=== PATIENT | male | born 1970 | race Caucasian/White ===

== ENCOUNTER 2018-12-01 16:05 | Outpatient (CLI) | payer BC, SELFPAY ==
[2018-12-01 17:09] LABS: Cholesterol 203 mg/dL (50-200); HDL Cholesterol 68 mg/dL (40-60); LDL CHOLESTEROL 113 mg/dL (<100); Triglyceride 146 mg/dL (30-150)
[2018-12-03 11:08] LABS: PSA, Screening 0.3 ng/ml (0-3.5)
== END 2018-12-01 16:25 ==
PROVIDERS: PCP Emergency Medicine; Visit Provider Emergency Medicine
DX: Z13.220 Encounter for screening for lipoid disorders (principal); Z12.5 Encounter for screening for malignant neoplasm of prostate
CPT/HCPCS: 36415; 80061; 83721; 84153

== ENCOUNTER 2020-07-04 15:42 | Outpatient (REF) | payer BC, SELFPAY ==
--- NOTE | 2020-07-04 14:15 | SKI_PTH ---
PATIENT: Celestino Meléndez LOC: [facility] U#:[id number] AGE/SX: 49/M ROOM: RE07/04/[address]: Melody Santoro MD : [id number] BED: DIS: 07/04/2020 SPEC #: [id number] RECD: 07/04/20 17:07 STATUS: FARHEEN REAdryan #: [id number] PAULINE: 07/04/20 14:[address]: Melody Santoro DEPT: Surgical Specimen RECD BY: Haleigh Herring ENTERED: 07/04/20 17:07 SP TYPE: SKI OTHR DR: Farshad Lam DO Tissues: 1 - SKIN BIOPSY(SHAVE/PUNCH) Procedures: GROSS AND MICRO LEVEL 4 Comments: [id number] ([id number] [facility] [place]#)
== END 2020-07-04 16:02 ==
LOC: LBN 15:42
PROVIDERS: PCP Emergency Medicine; Visit Provider Surgery
DX: D23.5 Other benign neoplasm of skin of trunk (principal)
CPT/HCPCS: 88305

== ENCOUNTER 2020-12-25 03:25 | Outpatient (CLI) | payer BC, SELFPAY ==
[2020-12-25 11:34] LABS: Source Nasal/Nares
[2020-12-25 16:10] LABS: COVID-19 PCR Negative (Negative)
== END 2020-12-25 03:26 | disposition home or self-care (01) ==
LOC: LBO 03:25
PROVIDERS: PCP Emergency Medicine; Visit Provider Surgery
DX: Z20.822 Contact with and (suspected) exposure to COVID-19 (principal); Z01.818 Encounter for other preprocedural examination
CPT/HCPCS: 87635

== ENCOUNTER 2020-12-27 06:18 | Day surgery (SDC) | payer BC, SELFPAY ==
[2020-12-27] VITALS (8 sets, daily range): BP systolic 105–131; BP diastolic 56–88; PULSE 48–69; RESP 12–19; TEMP 36.2–36.6; TEMPC 36.4; O2SAT 94–99; BMI 26.6
--- NOTE | 2020-12-27 06:19 | W.PREOPHP ---
Date of service: 12/27/20 Assessment and Plan Assessment and plan (1) Bilateral inguinal hernia: Status: Acute Assessment and plan: Mr. Meléndez is a pleasant 50-year-old gentleman who was referred for a left inguinal hernia. On examination he has small bilateral inguinal hernias. They are not causing him a lot of pain. He does have some discomfort especially after drinking beer with high hops content. I do not know if this is because it causes increased gas in his small bowel. We discussed open repair of just the left side this is the one that is causing him some discomfort versus doing bilateral laparoscopic inguinal hernia repairs. I reviewed both open and laparoscopic surgery. We reviewed risks and benefits. We also discussed timing of the surgery. At this point he can have the surgery whenever it is convenient to him. This is not urgent or emergent. I did review with him signs that be worrisome for incarceration for which she should go to the emergency department. Mr. Meléndez is going to go home and look at his calendar and then call us back with a date in mind for his surgery. Qualifiers: Obstruction and gangrene presence: without obstruction or gangrene Recurrence: non-recurrent Qualified Code(s): K40.20 - Bilateral inguinal hernia, without obstruction or gangrene, not specified as recurrent History of Present Illness Narrative: Mr. Meléndez is a pleasant 50-year-old gentleman who is back to see me today because he has been having some discomfort in the left groin area since last fall. In the fall he felt some discomfort it then seemed to go away for a little while but then at the beginning of this year he started to notice it again. He himself has not noted a bulge. He denies any changes in bowel habits, nausea or vomiting. He does complain of increased discomfort if he drinks beer with a lot of pop in it. He does not seem to have any discomfort with lifting. He is otherwise healthy 50-year-old who is on no medications. There have been no changes in his health since he was last seen in the office Review of Systems Constitutional Constitutional: Denies fever(s) and Denies weakness Cardiovascular Cardiovascular: Denies chest pain, Denies chest pain at rest, Denies irregular heart rhythm, Denies dyspnea and Denies dyspnea on exertion Respiratory Respiratory: Denies cough, Denies dyspnea and Denies dyspnea on exertion Gastrointestinal Gastrointestinal: Reports as per HPI Genitourinary Genitourinary: Denies dysuria, Denies urinary incontinence and Denies urinary urgency Neurologic Neurologic: Denies weakness Endocrine Endocrine: Reports system reviewed and no additional complaints, except as documented Hematologic/Lymphatic Hematologic/Lymphatic: Denies easy bruising and Denies lymphadenopathy [facility] Medical History Hearing loss TM rupture Idiopathic scoliosis Rotoscoliosis; kyphoscoliosis Left inguinal hernia Nevus, non-neoplastic Pain in limb fallen right arch Plantar fasciitis PSVT (paroxysmal supraventricular tachycardia) (12/24/17) Right hand and foot pain Sebaceous cyst Stress fracture of lower leg with routine healing left tibia Temporomandibular joint disorder TMJ assymetry Surgical History History of open reduction and internal fixation (ORIF) procedure (12/12/14) 12/12/14 [facility]; DR. HARVEY RIGHT ANKLE ORIF 10/11/15 [facility]; DR. HARVEY REMOVAL OF HARDWARE (RIGHT) History of vasectomy (08/01/16) Family History Mother Diabetes Essential hypertension Hyperlipidemia Skin cancer Father Essential hypertension Hyperlipidemia Neoplasm PROSTATE Prostate cancer Maternal Grandfather Hyperlipidemia Paternal Grandfather Essential hypertension Malignant melanoma Maternal Grandmother Essential hypertension Paternal Grandmother Essential hypertension Non-Hodgkin lymphoma Hyperlipidemia Daughter No problems noted. Sister No problems noted. Social History Smoking/Tobacco Use Status: Former Tobacco Use Quit Date: 09/01/89 Smoking risk assessment performed?: Yes Alcohol Intake: current Alcohol Intake frequency: a few times a week Alcohol type: beer, wine and hard liquor Drug use: Occasionally Substance use type: marijuana Caregiver/Support person: No Household members: spouse Housing: house Communication Needs: None Do you need help understanding health information?: Never current occupation: BUSINESS INFORMATION CONSULTANT/CONSTRUCTION Pets and animals: Yes Pets and animals: cat(s) and dog(s) Sexually active: Yes Do you think of yourself as: straight/heterosexual Current gender identity: male What is your relationship status?: How often do you talk on the phone with friends or family?: three or more times per week How often do you get together with friends or relatives?: three or more times per week How often do you attend jewish or yarsani services?: decline to answer Do you belong to any clubs or organized social groups?: yes Panel score (0-1 are the most socially isolated patients): 3 What type of physical activity do you participate in: bicycling, weight lifting and other Details: Ski; HIIT Duration: > 90 minutes/day Frequency: daily Consuelo/Temple: No preference Special consuelo needs: No Seatbelt use: always Helmet use: Yes Helmet use: always Drive intox or ride w/intox front end driver: No Do you feel safe at home: Yes Do you feel safe in your relationship?: Yes Victim of physical abuse: No Victim of emotional abuse: No Victim of sexual abuse: No Would you like helpful sources: No Meds Allergies and Home Medications Allergies Allergy/AdvReac Type Severity Reaction Status Date / Time tetracycline [Tetracycline] Allergy Intermediate RASH Verified 12/27/20 05:47 Bee sting Allergy Intermediate Skin Rash Uncoded 12/27/20 05:47 Home Medications Medication Instructions Recorded Confirmed Type Unknown [No Known Home Meds] 11/26/18 12/25/20 History Exam Const General: comfortable and no acute distress Orientation: alert and oriented x3 HENMT Head: normocephalic and atraumatic Resp Effort & Inspection: normal respiratory effort Auscultation: clear to auscultation bilaterally Cardio Rate: regular rate Rhythm: regular rhythm Heart Sounds: no gallops, no murmurs and no rubs GI Inspection: normal to inspection Palpation: soft, no hepatosplenomegaly, hernia (bilateral inguinal hernias) and nontender
--- NOTE | 2020-12-27 06:23 | ROE_ITS ---
Date of service: 12/27/20 Time of Service: 09:06 Operative Note Operative Note DATE OF PROCEDURE: 12/27/20 PRE-OP DIAGNOSIS: Bilateral inguinal hernias POST-OP DIAGNOSIS: same PROCEDURE: laparoscopic bilateral inguinal hernia repair with mesh SURGEON: Melody Santoro TECHNICAL SALES SUPPORT SPECIALIST: Lydia Ham ANESTHESIA TYPE: Local By Surgeon (1% Lidocaine with epi) and General LMA/ETT Refer to Anesthesia Record ESTIMATED BLOOD LOSS: 10 PATHOLOGY: none sent COMPLICATIONS: None Patient was transported to: PACU Patient's condition: stable Implants: Bard 3DMax Left: LOT- [id number] REF- [id number] - 2023-02-26 Right- LOT- [id number] REF- [id number] - 2023-06-28 Indications: Mr. Meléndez is a pleasant 50-year-old gentleman who was referred for a left inguinal hernia. On examination he has small bilateral inguinal hernias. They are not causing him a lot of pain. He does have some discomfort especially after drinking beer with high hops content. I do not know if this is because it causes increased gas in his small bowel. We discussed open repair of just the left side this is the one that is causing him some discomfort versus doing bilateral laparoscopic inguinal hernia repairs. Findings: larger left inguinal hernia small right inguinal hernia Procedure Description: After informed consent was obtained the patient was taken to the OR and placed in a supine position. He was then placed under general anesthesia and an LMA was placed. A timeout was done, and the patient's name, date of , allergies to medications, DVT prophylaxis, antibiotic given, the post procedure were all reviewed. Fire risk was assessed. Next a Obregon catheter was placed in a standard sterile surgical fashion. At this point the abdomen was prepped and draped in a sterile surgical fashion. Quarter percent bupivacaine mixed 50-50 with Exparel was then injected just underneath the umbilicus. A 12 mm incision was made and dissection was taken down through the subcutaneous tissue to the fascia. The fascia was opened just to the right of midline. An S retractor was placed and the rectus muscle was then retracted. And then swept the muscle away from the peritoneum. The balloon dissector was then inserted all the way down to the pubic symphysis. The balloon was inflated until both inguinal areas were dissected. The balloon was removed and the preperitoneal space was insufflated. Once insufflated the camera was placed. 2 more ports were placed one just above the pubic symphysis which was 5 mm in size and another midway between the umbilicus and the pubic symphysis. This was also a 5 mm port. Next the right inguinal area was gently dissected making sure to pull the peritoneum down. The cord structures were identified. No fatty tissue was identified on the cord structures. There was a small hernia sac which was reduced away from the cord structures. Next I made sure that the peritoneum was down all the way up to the iliac crest. The pubic symphysis was also cleared for good visualization. Next the left inguinal area was gently dissected in the same way. First the peritoneum was brought down away from the cord structures and away from the pubic symphysis. The cord structures were identified and a sac was noted. The hernia sac again was gently dissected away from the cord structures and reduced. No cord lipoma was identified. Once there was a good space created both on the right and left for the mesh a 3D left mesh was placed into the peritoneum through the 12 mm port. It was secured at the lacunar ligament and just above the anterior superior iliac spine. There was good coverage medially. I made sure that the peritoneum was down below the mesh edge. Next the right 3D mesh was placed into the peritoneum. It was again secured at the lacunar ligament and just above the anterior superior iliac spine. There was good overlap at the pubic symphysis of both meshes. Again I made sure that the peritoneum and the hernia sac were below the edge of the mesh. At this point the 5 mm ports were removed. Lastly the camera was removed and the 12 mm port at the umbilicus. The fascia at the umbilicus was closed with a 0 Vicryl UR 6 figure of 8 suture. The skin of all 3 incisions were closed with 4-0 Vicryl. The skin was cleaned and dried and skin affix was applied. Sponge instrument needle counts were correct. The patient was woken up, the LMA was removed and he was taken to recovery in stable condition. There were no immediate complications.
--- NOTE | 2020-12-27 06:24 | PDOC.DSDIS_ITS ---
Discharge Plan Disposition Patient Disposition: HOME Condition: Good Discharge Details Reason For Visit: bilateral inguinal hernias Attending Provider: Melody Santoro Primary Care Provider: Farshad Lam Home Meds and New Rx's Prescriptions: New oxycodone 5 mg tablet 5 mg PO Q6H PRNQty: 14 RF: 0 Discharge Instructions Instructions: Laparoscopic Herniorrhaphy (DC) Additional Instructions: Activity at Home after surgery: 1. Make sure you walk outside at least 4 times per day 2. You should be able to climb a flight of stairs 3. No driving while in pain or taking pain medications 4. No strenuous activity or heavy lifting for 2 weeks (laparoscopic surgery) Diet, Nutrition, & wound healin. Avoid alcohol until after you are recovered from your surgery 2. Make sure to eat plenty of lean protein (meat, fish, eggs, cottage cheese, beans) 3. Eat a variety of fruits and vegetables. Eat plenty of high fiber foods to avoid constipation. 4. Drink plenty of liquids to stay hydrated and avoid constipation Pain Medications: 1. Tylenol 650mg every 6 hours as needed and Ibuprofen 600 mg every 6 hours as needed. You may alternate between the 2 medications every 3 hours 2. If a narcotic has been prescribed take as directed only for breakthrough pain For Constipation: 1. Take Milk of Magnesia or MiraLax as needed for constipation Other: 1. You may shower daily. Do not scrub the incisions 2. Do not soak the incisions for 1 week 3. You may alternate ice and heat as needed for pain and swelling Wound Care: 1. Keep the incisions clean and dry Please call our office if you develop: 1. Fevers >101.5 2. Nausea or Vomiting 3. Worsening pain 4. Redness and thick discharge from the wounds If after hours please call the Hospital at and ask to speak to the on-call surgeon Referrals: Lydia Ham PA [[employer]IST] - 01/11/21 11:00 am Activity:: No lifting >20 lb x 2 weeks Shower/Bathe:: 24 hours Diet:: As Tolerated Discharge Orders Discharge Orders: Discharge Order (Routine); Ordered 12/27/20 Ordered By: Melody Santoro DS: Diagnosis Discharge Diagnosis (1) Bilateral inguinal hernia: Status: Acute
[2020-12-27] MEDS: Lactated Ringers 1,000 ML 80 ML IV (06:42)
[2020-12-27] MEDS: Acetaminophen 500 MG TAB 1000 MG PO (06:42)
[2020-12-27] MEDS: Gabapentin 300 MG CAP PO (06:42)
[2020-12-27] MEDS: Celecoxib 200 MG CAP PO (06:42)
--- NOTE | 2020-12-27 06:54 | ANES.PREOP_ITS ---
General Info Date of Service Date Performed: 12/27/20 Height: 6 ft 1 in Weight: 91.4 kg Body Mass Index (BMI): 26.6 Surgical Procedure: Operation Date: 12/27/20 07:40 Proposed Procedures Side Surgeon p Hernia Inguinal Laparoscopic Bilateral Melody Santoro MD Meds Allergies and Home Medications Allergies Allergy/AdvReac Type Severity Reaction Status Date / Time tetracycline [Tetracycline] Allergy Intermediate RASH Verified 12/27/20 05:47 Bee sting Allergy Intermediate Skin Rash Uncoded 12/27/20 05:47 Home Medication Medication Instructions Recorded Unknown [No Known Home Meds] 11/26/18 Current Visit Medications: Current Medications Generic Name Dose Route Start Last Admin Trade Name Freq PRN Reason Stop Dose Admin Acetaminophen 1,000 mg 12/27/20 06:00 12/27/20 06:42 Acetaminophen 500 Mg Tab PO 01/25/21 23:59 1,000 mg PREOP NAYA Administration Celecoxib 200 mg 12/27/20 06:00 12/27/20 06:42 Celecoxib 200 Mg Cap PO 01/25/21 23:59 200 mg PREOP NAYA Administration Gabapentin 300 mg 12/27/20 06:00 12/27/20 06:42 Gabapentin 300 Mg Cap PO 01/25/21 23:59 300 mg PREOP NAYA Administration Ringer's Solution 1,000 mls @ 80 mls/hr 12/27/20 06:00 12/27/20 06:42 IV 01/25/21 23:59 80 mls/hr INFUSION NAYA Administration Cefazolin Sodium/Dextrose 2 gm in 50 mls @ 100 mls/hr 12/27/20 06:00 Ancef Duplex IVPB 01/25/21 23:59 PREOP NAYA Ondansetron HCl 4 mg/ Sodium 52 mls @ 200 mls/hr 12/27/20 06:27 Chloride IVPB Q6H PRN PRN IV Miscellaneous Supplies 1 each 12/27/20 06:00 Iv Access IV 01/25/21 23:59 DIRECTED NAYA Oxycodone HCl 5 mg 12/27/20 06:27 Oxycodone 5 Mg Tab PO Q3H PRN PRN Pain Sodium Chloride 0 ml 12/27/20 06:00 Normal Saline Flush 10 Ml Syr IV 01/25/21 23:59 PRN PRN Sodium Chloride 0 ml 12/27/20 06:00 Normal Saline 10 Ml Vial IJ 01/25/21 23:59 DIRECTED PRN Sterile Water 0 ml 12/27/20 06:00 Water,Injection,Sterile 10 Ml Vial IJ 01/25/21 23:59 DIRECTED PRN PFS Active Problems Active Problems: Problem Status Onset Code Thumb pain M79.646 Bilateral inguinal hernia K40.20 Left inguinal hernia K40.90 Sebaceous cyst L72.3 Family history of prostate cancer in father Z80.42 History of orthopedic surgery 10/11/15 Z98.890 Medical History Medical History Hearing loss TM rupture Idiopathic scoliosis Rotoscoliosis; kyphoscoliosis Left inguinal hernia Nevus, non-neoplastic Pain in limb fallen right arch Plantar fasciitis PSVT (paroxysmal supraventricular tachycardia) (12/24/17) Right hand and foot pain Sebaceous cyst Stress fracture of lower leg with routine healing left tibia Temporomandibular joint disorder TMJ assymetry Surgical History Surgical History History of open reduction and internal fixation (ORIF) procedure (12/12/14) 12/12/14 [facility]; DR. HARVEY RIGHT ANKLE ORIF 10/11/15 [facility]; DR. HARVEY REMOVAL OF HARDWARE (RIGHT) History of vasectomy (08/01/16) Tobacco Smoking/Tobacco Use Status: Former Tobacco Use Alcohol Alcohol Intake: current Alcohol intake frequency: a few times a week Alcohol type: beer, wine and hard liquor Substance Use Substance use: Occasionally Substance use type: marijuana Vital Signs and Lab Results Vital Signs Most Recent Vital Signs in EMR: Most Recent Vital Signs Temp Pulse Resp BP Pulse Ox 36.6 C 53 L 18 131/88 98 12/27/20 06:20 12/27/20 06:20 12/27/20 06:20 12/27/20 06:20 12/27/20 06:20 Lab Results Blood Type / Crossmatch: No Data to Display Complete Blood Count: White Blood Count 4.18 k/cumm (4.4-10.8) L 03/25/18 07:25 03/25/18 Red Blood Count 4.77 m/cumm (4.50-6.00) 03/25/18 07:25 03/25/18 Hemoglobin 15.4 g/dL (13.5-17.5) 03/25/18 07:25 03/25/18 Hematocrit 46.2 % (40.0-50.0) 03/25/18 07:25 03/25/18 Platelet Count 172 x1000/uL (130-400) 03/25/18 07:25 03/25/18 Complete Metabolic Panel: Creatinine 1.13 mg/dL (0.70-1.30) 03/25/18 07:25 03/25/18 Liver Function Panel: No Data to Display Coagulation Panel: No Data to Display Cardiac Panel: No Data to Display Arterial Blood Gas: No Data to Display Venous Blood Gas: No Data to Display Pancreas Panel: No Data to Display Thyroid Panel: No Data to Display Infectious Disease: Coronavirus (COVID-19)(PCR) Negative (Negative) 12/25/20 11:02 12/25/20 Coronavirus 2019 Source Nasal/nares 12/25/20 11:02 12/25/20 Blood Cultures: No Data to Display Toxicology Panel: No Data to Display Imaging and Studies Imaging and Studies Echocardiogram Summary:: 02/28/2014 LEFT VENTRICLE/LVEF: LVEF 60-65%. Normal size. RIGHT VENTRICLE: Normal size and function. AORTIC VALVE: Trileaflet, mild aortic insufficiency, no stenosis. MITRAL VALVE: Mild mitral insufficiency, no stenosis. TRICUSPID VALVE: Mild tricuspid insufficiency. RSV/PA/RIGHT ATRIAL PRESSURE: Pulmonary artery pressure estimated at 15-20mm. of mercury plus right atrial pressure. PULMONIC VALVE: Trace pulmonic insufficiency, no stenosis. ATRIA: Mild left atrial enlargement. The right atrium is normal. DIASTOLIC INDICES: GREAT VESSELS: The inferior vena cava is normal in size and collapses with inspiration. Right atrial pressure is estimated at less than 10 mm. of mercury. The aortic root measures 4.8 cm. in diameter at the sinus of Valsalva. The ascending aorta measures 3.8 cm. in diameter. PERICARDIUM: No effusion. RHYTHM: Sinus. Anesthesia Assessment and Plan Anesthesia History Personal History: No History of Anesthesia Complications Family History: No Family History of Anesthesia Complications Exercise Tolerance Exercise Tolerance: Metabolic Equivalents>4 Pertinent Negatives Pertinent Negatives: No Symptoms of GERD Cardiac & Pulmonary Exam Cardiac Exam: Normal S1/S2 Heart Sounds Pulmonary Exam: Clear Bilateral Breath Sounds Airway Exam Known Difficult Airway: No Mallampati Class: 2 Mouth Opening: Normal (> 3cm) Thyromental Distance: Greater than 3 cm Neck Range of Motion: Full ROM Neck Circumference: Normal Teeth Condition: Normal Dentition ASA Classification ASA Score: ASA 2 ASA Emergency: No NPO Status NPO Status: NPO Clears >2 hours, Solids >8 hours Anesthesia Plan Anesthesia Technique: General Anesthesia Airway Planned: Natural Airway Monitors Used: Standard Monitors
[2020-12-27] MEDS: ceFAZolin 2 GM/50 ML BAG IVPB (07:30)
--- NOTE | 2020-12-27 09:28 | W.ANESPOSTOP ---
Postoperative Evaluation Date, Time and Location Date Performed: 12/27/20 Time Performed: : Patient Location: PACU Vital Signs Most Recent Imported Vital Signs: Most Recent Vital Signs Temp Pulse Resp BP Pulse Ox 36.3 C L 61 18 110/56 L 95 12/27/20 09:20 12/27/20 09:20 12/27/20 09:20 12/27/20 09:20 12/27/20 09:20 Most Recent Manually Entered Vital Signs: Adult Blood Pressure: 109/62 Heart Rate: 69 Respirations: 18 Oxygen Saturation (%): 95 Temperature (C): 36.4 C Pain Score (0-10 Scale): 0 Pain Score Most Recent Pain Score: Most Recent Pain Score Pain Level 0 12/27/20 09:20 Assessment Mental Status: Awake (Alert & Oriented to Patient Baseline) Airway and Respiratory Function: Patent airway with normal (patient baseline) respiratory exam Cardiovascular Function: Hemodynamically Stable Hydration Status: Adequately Hydrated Nausea & Vomiting: No Nausea or Vomiting Pain: Pt. Denies Any Pain Peripheral Nerve Block: Patient did not receive a nerve block
[2020-12-27] MEDS: oxyCODONE 5 MG TAB PO (10:23)
== END 2020-12-27 11:15 | disposition home or self-care (01) ==
PROVIDERS: PCP Emergency Medicine; Visit Provider Surgery
PROC: (CPT 49650; principal; 2020-12-27 07:30)
DX: K40.20 Bilateral inguinal hernia, without obstruction or gangrene, not specified as recurrent (principal); I47.1 Supraventricular tachycardia
CPT/HCPCS: 49650; J0690; J1100; J1885; J2001; J2405; J2704; J3010

== ENCOUNTER 2021-06-26 21:27 | Outpatient (REF) | payer BC, SELFPAY ==
[2021-06-27 17:43] LABS: PSA, Screening 0.3 ng/mL (0.0-3.5)
== END 2021-06-26 21:28 | disposition home or self-care (01) ==
LOC: LBN 21:27
PROVIDERS: PCP Emergency Medicine; Visit Provider Emergency Medicine
DX: Z12.5 Encounter for screening for malignant neoplasm of prostate (principal)
CPT/HCPCS: 84153

== ENCOUNTER 2021-08-15 11:35 | Outpatient (CLI) | payer BC, SELFPAY ==
--- NOTE | 2021-08-15 11:00 | DI.RAD_ITS ---
Exam(s) XR THUMB LT EXAM: XR THUMB LT CLINICAL HISTORY: thumb anomaly. TECHNIQUE: 2D digital imaging was performed. COMPARISON: No exams were available for comparison FINDINGS: No evidence of acute fracture nor dislocation. No osseous lesions. No radiopaque foreign body. Mil d degenerative changes are noted in the interphalangeal joint and metacarpophalangeal joint. No eros ions. IMPRESSION: DATA REPOSITORY: RADIATION DOSE DELIVERED:
== END 2021-08-15 11:36 | disposition home or self-care (01) ==
LOC: DIORS 11:36
PROVIDERS: PCP Emergency Medicine; Referring Provider Emergency Medicine; Visit Provider Student in an Organized Health Care Education/Training Program
DX: M20.092 Other deformity of left finger(s) (principal); M18.12 Unilateral primary osteoarthritis of first carpometacarpal joint, left hand
CPT/HCPCS: 73140

== ENCOUNTER 2023-03-10 13:21 | Outpatient (CLI) | payer BC, SELFPAY | END 2023-03-10 13:22 | disposition home or self-care (01) | PROVIDERS: PCP Family Medicine; Visit Provider Family Medicine | DX: I47.1 Supraventricular tachycardia (principal) | CPT/HCPCS: 93270 ==

== ENCOUNTER 2023-03-21 08:45 | Outpatient (CLI) | payer BC, SELFPAY ==
--- NOTE | 2023-03-21 08:45 | RT.EKG_ITS ---
APPROVED REPORT Exam: Resting ECG Reason for Exam: new patient work up baseline needed Patient Location: O HR:45 bpm ECG Measurements Heart Rate 45 AXIS MD 182 P 70 QRSd 153 QRS 95 QT 517 T 51 QTc 448 Conclusion Sinus bradycardia...rate< 50 RBBB
== END 2023-03-21 08:46 | disposition home or self-care (01) ==
LOC: DI.CARD 08:47
PROVIDERS: PCP Family Medicine; Visit Provider Internal Medicine Cardiovascular Disease
DX: I47.20 Ventricular tachycardia, unspecified (principal); Z13.6 Encounter for screening for cardiovascular disorders
CPT/HCPCS: 93010

== ENCOUNTER 2023-04-03 00:50 | Outpatient (CLI) | payer BC, SELFPAY ==
--- NOTE | 2023-04-03 07:30 | DI.NM_ITS ---
APPROVED REPORT Exam: Exercise Treadmill Patient Location: Out-Patient Room/Bed: Stress Nurse: Nanci Escobar RN Ordering Provider:LUL CARPIO, Contact Number: [phone] BMI: 25.06 Baseline Rhythm: Sinus Bradycardia, RBBB Indications: Paroxysmal SVT, RBBB Medical History Medical History: RBBB, BPH, high blood pressure without HTN diagnosis Cardiac Medications: Epinephrine per injector Allergies: Tetracycline, bee stings, skin glue Cardiac Risk Factors: Family history Previous Cardiac Procedures: None Pretest Chest Pain Characteristics: None Exercise History: Physically active Physical Disabilities: None Lung Sounds: Clear to auscultation Heart Sounds: Regular Stress Test Details Test: Exercise stress testing was performed using a Adilson protocol. Nuclear Acquisition: Rest Tc-99m/Stress Tc-99m 1 day Rest Isotope: Tc-99m Sestamibi. Dose: 10.5 Date: 04/03/2023 Injection Time: 1105 Stress Isotope: Tc-99m Sestamibi. Dose: 28.0 Date: 04/03/2023 Injection Time: 1245 HR Resting HR Supine: 45 bpm Max Heart Rate (APMHR): 166.625543 bpm Resting HR Standin bpm Target HR (85% APMHR): 141.774154 bpm Max HR Achieved: 207 bpm % of APMHR: 124.70 Recovery HR: 111 bpm HR response to stress: Accelerated HR response to stress BP Resting BP Supine: 138/92 mmHg Resting BP Standin/85 mmHg Max BP: 202/96 mmHg Recovery BP: 150/92 mmHg BP response to stress: Normal blood pressure response to stress. ECG Resting ECG: Sinus Bradycardia,RBBB Ectopy: Occasional PVC's Stress ECG: Sinus Tachycardia, PSVT ST Change: No significant ST segment changes noted Arrhythmia: SVT, couplets, frequent PVC's, 3 beat runs of vtach Recovery ECG: Sinus Tachycardia, RBBB Recovery ST Change: No significant ST segment changes noted Recovery Arrhythmia: Frequent PVC's, couplets, 3 beat runs vtach Clinical Reason for Termination: SVT sustained: rates 160-200's Stress Symptoms: Mild palpitations Exercise duration: 06 min36 sec Highest Stage Reached: Stage 3: 3.4 mph at 14% grade. Exercise capacity: 7.92 METs Angina Score: None Freedman Treadmill Score: 3.0 Rate Pressure Product: 53366 Stress ECG Conclusion 1. The resting electrocardiogram showed sinus bradycardia at 45, right bundle branch block 2. Patient exercised on the Adilson protocol. He completed a workload of 7.92 METS 3. Patient developed supraventricular tachycardia in stage II heart rates as high as 200 4. Premature ventricular contractions were also noted. Sporadic atrial premature beats were present which appeared to initiate the SVT 5. The electrocardiographic portion of the test did not meet criteria for myocardial ischemia 6. At maximal heart rates, EKG showed regular wide-complex tachycardia 7. See MPI report Freedman Treadmill Score is 3.0 which is Moderate risk. Critical Notification Physician Notified Date: 04/03/2023 Time: 1309 Physician Name: Response Time: 1:12 Stress Test Summary STAGE Time (mins) Speed (mph) Grade (%) HR BP SpO2 SYMPTOMS METS Supine 45 138/92 99 Standing 53 142/85 99 1 3 1.7 10 83 150/92 99 4.5 2 6 2.5 12 91 170/82 99 7 1 min recovery 182 162/82 3 min recovery 119 202/92 6 min recovery 109 152/90 9 min recovery 111 Patient presented in sinus bradycardia and was asymptomatic. Started exercise and noted to go into SV T in stage 3. HR between 160-207 at this time. Test stopped and patient escorted to stretcher. Ezio nued to be asympstomatic but did note mild palpitations. Vagal manuvers done by patient with staff in struction and rate decreased to 100's-120's. Dr. Carpio consulted and evaluated patient and rhythm. Pat ient ok to proceed with imaging with tech per Dr. Carpio as long as he did not demonstrate any new symp toms. Tech informed to notify nurses if patient developed new symptoms. Ok to D/C patient per Dr. Lor hardwick after imaging if patient did not develop new or worsening symptoms. MPI Conclusion Myocardial perfusion is normal. There is no ischemia or evidence of prior infarction left ventricle appears dilated. Calculated ejection fraction is 41% but visually appears higher. T here are no segmental wall motion abnormalities Radiologist Interpretation Radiologist agrees with [employer] Applicator's Interpretation. Radiologist Interpretation by: Caitlyn Young MD Interpretation Date/Time: 04/03/2023 15:36:00
== END 2023-04-03 01:10 ==
PROVIDERS: PCP Family Medicine; Visit Provider Internal Medicine Cardiovascular Disease
DX: I45.10 Unspecified right bundle-branch block (principal); I47.1 Supraventricular tachycardia
CPT/HCPCS: 78452; 93017

== ENCOUNTER 2023-04-14 08:15 | Outpatient (CLI) | payer BC, SELFPAY ==
--- NOTE | 2023-04-14 12:24 | W.CARDEVENT ---
Date of service: 04/14/23 Time of Service: 12:24 Cardiac Event Recorder Referring Provider:: Mary Stanley Indications:: Supraventricular tachycardia Cardiac Event Note: This is a cardiac event monitor ordered for supraventricular tachycardia. Patient was monitored for 28 days and 14 hours Predominant rhythm was sinus with an average heart rate of 63. Minimum was 37, maximum sinus rate was 143 There were multiple runs of supraventricular tachycardia, generally 152 to 172 bpm Fastest SVT was 200 bpm . There was no atrial fibrillation, no high-grade AV block, no pauses greater than 3 seconds
== END 2023-04-14 08:16 | disposition home or self-care (01) ==
LOC: CARDOPNVT 08:15
PROVIDERS: PCP Family Medicine; Visit Provider Internal Medicine Cardiovascular Disease
DX: I47.1 Supraventricular tachycardia (principal)

== ENCOUNTER → 2023-05-08 02:58 | Outpatient (CLI) | payer BC, SELFPAY ==
--- NOTE | 2023-05-08 13:45 | DI.US_ITS ---
APPROVED REPORT EXAM: Comprehensive 2D, Doppler, and color-flow Echocardiogram Patient Location: In-Patient Auth Specialist: Angelo Reveles RDCS (AE) Indications: paroxysmal SVT, RBBB Other Information Study Quality: Good Conclusion Normal left ventricular wall thickness and chamber size. Ejection fraction is 55 to 60%. Wall motio n is normal Normal right ventricular size and systolic function Left atrium is mildly dilated. Right atrial size is normal There are no structural valvular abnormalities Trace aortic mitral and tricuspid regurgitation Mildly dilated ascending aorta measuring 3.66 cm Right ventricular systolic pressure could not be estimated Wall motion Left Ventricle The left ventricle is normal size. The left ventricular systolic function is normal. The left ventric ular ejection fraction is within the normal range. There is normal left ventricular wall thickness. T here is normal LV segmental wall motion. There is no ventricular septal defect visualized. LVEF is 57 %. Right Ventricle The right ventricle is normal size. The right ventricular systolic function is normal. Unable to asse ss PA pressure. Atria Left atrium is mildly dilated. The right atrium size is normal. The interatrial septum is intact with no evidence for an atrial septal defect. Aortic Valve The aortic valve is normal in structure. There is no aortic valvular stenosis. Trace aortic regurgita tion. Mitral Valve The mitral valve is normal in structure. No evidence of mitral valve stenosis. Trace mitral regurgita tion. Tricuspid Valve The tricuspid valve is normal in structure. There is no tricuspid valve stenosis. Trace tricuspid reg urgitation. Pulmonic Valve The pulmonary valve is normal in structure. There is no pulmonic valvular stenosis. There is no pulmo giovanny valvular regurgitation. Great Vessels Aortic root is moderately dilated. The ascending aorta is mildly dilated. Aortic arch is not well vis ualized. IVC is normal in size and collapses >50% with inspiration. Pericardium There is no pericardial effusion. 2D Dimensions IVSD d PLAX 0.72 cm M: 0.6-1.2 Ao Root d 4.45 cm M: 3.1 - 3.7 LVPW d PLAX 0.73 cm M: 0.6 - 1.2 Ao Asc Diam d 3.66 cm M: 2.6 - 3.4 LVID d PLAX 5.50 cm M: 4.2 - 5.8 LVDs 3.86 cm M: 2.5 - 4.0 LV EF Teichholz 56.3 % FS 29.77 % LV EDV (Teich) 147.5 mL LV ESV (Teich) 64.4 mL Stroke Vol Index (Teich) 38.99 M-Mode TAPSE 2.45 cm (M/F) >1.7 Auto EF LV EDV A4C 205.9 mL LV EDV A2C 212.8 mL LV EDV BP 213.7 mL LV ESV A4C 89.4 mL LV ESV A2C 92.3 mL LV ESV BP 91.5 mL LVEF(%) A4C 56.6 % LVEF(%) A2C 56.6 % LVEF(%) BP 57.2 % LV SV A4C 116.5 ml LV SV A2C 120.5 ml LV SV BP 122.2 ml LV CO A4C 6.3 L/min LV CO A2C 6.5 L/min LV CO BP 6.4 L/min HR A4C 54.30 BPM HR A2C 53.88 BPM LV EDV Index (BP) LA Volume LA Length A4C 5.6 cm LA Length A2C LA Area A4C s 16.86 cm2 LA Area A2C s LA Vol A4C A-L 42.89 mL LA Vol A2C A-L LA Vol Biplane A-L LA Vol A4C MOD 40.6 mL LA Vol A2C MOD LA Vol BP MOD RA Volume RA Area A4C 12.8 cm2 RA ESV A4C (A-L) 28.9mL RA Vol/BSA A4C A-L RA Length A4C 4.8 cm RA ESV A4C (MOD) 28.1mL LV Diastology MV E' medial 0.103 (>0.07 m/s) MV E Vmax 0.68 (0.4-1.3 m/s) MV E/E' MED 6.61 (<14) MV A Vmax 0.50 (0.4-1.3 m/s) MV E' lateral 0.105 (>0.1 m/s) E/A Ratio 1.4 MV E/E' LAT 6.46 (<14) MV E' Average 0.104 m/s MV E/E'(average) 6.54 Aortic Valve AoV Vmax 1.43 m/s LVOT Vmax 1.19 m/s AoV Peak Grad 8.2 mmHg LVOT Peak Grad 5.7 mmHg AoV Area (Vmax) 3.19 cm2 LVOT VTI 0.272 m AoV VTI 0.306 m LVOT Mean Grad 2.9 mmHg AoV Mean Julio. 0.85 m/s LVOT SV 104.76 mL AoV Mean Grad 3.5 mmHg LVOT Diam s 2.20 cm AoV Area (VTI) 3.43 cm2 Velocity Ratio 0.83 Mitral Valve MV DT 254 (160-240 msec) Pulmonary Valve PV Vmax 1.01 (0.5-1.5 m/s) RVOT Vmax 0.81 m/s PV Peak Grad 4.1 mmHg RVOT Peak Gr. 2.6 mmHg PV Mean Julio 0.79 m/s RVOT VTI 0.171 m PV Mean Grad 2.7 mmHg RVOT Mean Gr. 1.5 mmHg Tricuspid Valve RA Pressure 3.00 mmHg TR Vmax 1.18 m/s TR Peak Grad 5.5 mmHg RVSP (TR) 8.6 mmHg
== END ==
PROVIDERS: PCP Family Medicine; Visit Provider Internal Medicine Cardiovascular Disease
DX: I45.10 Unspecified right bundle-branch block (principal); I47.1 Supraventricular tachycardia
CPT/HCPCS: 93306

== ENCOUNTER 2023-07-30 03:14 | Outpatient (CLI) | payer BC, SELFPAY ==
[2023-07-30 12:18] LABS: ALT 39 U/L (16-63); AST 38 U/L (15-37); Albumin 3.7 g/dL (3.4-5.0); Alkaline Phosphatase 59 U/L (46-116); Anion Gap 5.5 mmol/L (3-11); BUN 18 mg/dL (7-18); Bilirubin, Total 0.5 mg/dL (0.2-1.0); CO2 31.5 mmol/L (21.0-32.0); CREATININE 1.1 mg/dL (0.70-1.30); Calcium 9.1 mg/dL (8.5-10.1); Calculated LDL 106 mg/dL (<100); Chloride 102 mmol/L (98-107); Cholesterol 211 mg/dL (<200); Estimated GFR 79.77 (mL/min/1.73m2); Glucose 107 mg/dL (74-106); HDL Cholesterol 81 mg/dL (40-60); Magnesium 2.4 mg/dL (1.8-2.4); Potassium 3.9 mmol/L (3.5-5.1); Sodium 139 mmol/L (136-145); Total Protein 7.4 g/dL (6.4-8.2); Triglyceride 121 mg/dL (<150)
[2023-07-30 18:42] LABS: PSA, Screening 0.3 ng/mL (<=3.5)
[2023-08-01 13:32] LABS: Apolipoprotein B, S 86 mg/dL
== END 2023-07-30 03:15 | disposition home or self-care (01) ==
LOC: LBO 03:14
PROVIDERS: PCP Family Medicine; Visit Provider Family Medicine
DX: I45.10 Unspecified right bundle-branch block (principal); I47.20 Ventricular tachycardia, unspecified; Z00.00 Encounter for general adult medical examination without abnormal findings; Z13.6 Encounter for screening for cardiovascular disorders; Z12.5 Encounter for screening for malignant neoplasm of prostate
CPT/HCPCS: 36415; 80053; 80061; 82172; 84153; 83735

== ENCOUNTER 2025-04-03 11:17 | Emergency (ER) | payer BC, SELFPAY ==
[2025-04-03] VITALS (20 sets, daily range): BP systolic 136–165; BP diastolic 69–94; PULSE 53–75; RESP 13–22; TEMP 37.1; O2SAT 93–100
--- NOTE | 2025-04-03 11:00 | RT.EKG_ITS ---
APPROVED REPORT Exam: Resting ECG Reason for Exam: [facility] Patient Location: E HR:71 bpm ECG Measurements Heart Rate 71 AXIS PA 169 P 62 QRSd 155 QRS 71 QT 461 T 48 QTc 499 Conclusion Sinus rhythm...normal P axis, V-rate 60- 99 Right bundle branch block...QRSd>120, terminal axis(90,270) Sinus Rhythm with RBBB. When compared to prior 03/21/23 HR has increased. WD
--- NOTE | 2025-04-03 11:15 | DI.CT_ITS ---
Exam(s) CT BRAIN NECK CTA EXAM: CT BRAIN NECK CTA CLINICAL HISTORY: new onset seizure, left facial droop, dysphasia. TECHNIQUE: Imaging Protocol: Axial CT angiography was performed with multi- slice acquisition and multi-planar and/or 3D reconstructions. CONTRAST MATERIAL: Intravenous: Omnipaque 350 Contrast volume:75 mL. COMPARISON: No exams were available for comparison FINDINGS: CTA Neck W: Aortic arch anatomy: The aortic arch anatomy is conventional and there is no significant stenosis at the origin of the great vessels off of the aortic arch. No intimal flap evident. Anterior circulation: Both common carotid arteries ascend with normal luminal diameters. At the level the carotid bulbs and proximal internal carotid arteries there is minimal plaque without hemodynamically significant stenosis evident either side. Also no evidence of dissection. Both internal carotid arteries are nicely patent in the upper neck-skull base- carotid canals. Posterior circulation: Both vertebral arteries originate in conventional fashion off of the subclavian arteries and there is no obvious stenosis at the origin of the vertebral arteries. Both vertebral arteries exhibit normal luminal diameters within the foramen transversarium. Both vertebral arteries exhibit similar size. Both vertebral arteries contribute to the formation of the basilar artery at the skull base. CTA Brain W: Anterior circulation: Both internal carotid arteries are patent in the skull base-carotid canals as well as within the cavernous sinuses. The supraclinoid aspects of the ICAs are patent. Both A1 segments are patent as are the anterior cerebral arteries and there is no evidence of aneurysm at the level of the anterior communicating artery. Both middle cerebral arteries are patent with no evidence of significant stenosis nor intraluminal thrombus. There also no aneurysms of these vessels. Posterior circulation: Basilar artery ascends without significant stenosis. Distally gives off superior cerebellar arteries. Above this level terminates as patent posterior cerebral arteries. There is a posterior communicating artery on the left side of the uxehzf-mh-Mohvnu noted, this setting circulation to the left posterior cerebral artery. There is no posterior communicating artery evident on the right side of the [id number]-[id number]. There is no evidence of aneurysm at the tip of the basilar artery nor elsewhere in the ozhgfu-[id number]. CT BRAIN: There is an abnormal enhancing mass in the floor of the left middle cranial fossa which measures 1.7 cm AP by 1.5 cm wide by 1.5 cm craniocaudal. This appears to be meningeal based and is probably meningioma although the amount of edema in the anterior left temporal lobe within the left middle cranial fossa is more than typically seen with a meningioma. There are no ring enhancing lesions in the brain. IMPRESSION: 1. Patent carotid arteries in the neck. No hemodynamically significant stenosis. No dissection 2. Patent vertebral arteries. No significant stenosis, thrombosis, nor dissection 3. Patent intracranial arteries. 4. There is an enhancing lesion in the inferior aspect of the left middle cranial fossa measuring 17 x 15 x 15 mm and appearing dural-based and probably a meningioma. However, there is significant surrounding vasogenic edema in the anterior left temporal lobe at this level noted, more so than typically seen with a meningioma. Recommend follow-up contrast infused MRI. Preliminary virtual Radiology report was reviewed. RADIATION DOSE DELIVERED: 2,219.79mGy.cm Total DLP DATA REPOSITORY: All CT scans at this facility are submitted to the National Radiology Data Registry (NRDR) Dose Index Registry (DIR) with the [place] [employer] (ACR). RADIATION OPTIMIZATION: All CT scans at this facility use at least one of these dose optimization techniques: automated exposure control; mA and/or kV adjustment per patient size (includes targeted exams where dose is matched to clinical indication); or iterative reconstruction.
--- NOTE | 2025-04-03 11:30 | DI.RAD_ITS ---
Exam(s) XR CHEST 1V IN DI DEPT EXAM: XR CHEST 1V IN DI DEPT CLINICAL HISTORY: ams. TECHNIQUE: 2D digital imaging was performed. COMPARISON: No exams were available for comparison FINDINGS: Single AP portable view. Heart size is upper normal. The mediastinum is not widened. Lungs are clear. No infiltrates nor obvious pleural effusions. Moderate scoliosis noted IMPRESSION: No acute pulmonary findings on this single AP portable view of the chest. DATA REPOSITORY: RADIATION DOSE DELIVERED:
[2025-04-03] MEDS: Normal Saline - Diluent 50 ML VIAL IJ (11:34)
[2025-04-03 11:36] LABS: Abs Immature Grans 0.03 10^3/uL (0.0-0.06); HCT 41.6 % (40.0-50.0); HGB 14.3 g/dL (13.5-17.5); Immature Grans % 0.6 %; MCH 32.6 pg (27.0-33.0); MCHC 34.4 % (32.0-36.0); MCV 95 fL (80-95); MPV 10.3 fL (8.0-11.0); Platelet Count 147 10^3/uL (130-400); RBC 4.38 10^6/uL (4.36-5.78); RDW 12.4 % (11.8-14.1); RDW-SD 43.8 fL; WBC 5.17 10^3/uL (4.4-10.8)
[2025-04-03] MEDS: Omnipaque 350 MG/ML 100 ML BTL IJ (11:42)
[2025-04-03 11:51] LABS: ALT 28 U/L (16-63); AST 19 U/L (15-37); Albumin 3.8 g/dL (3.4-5.0); Alkaline Phosphatase 55 U/L (46-116); Anion Gap 6.0 mmol/L (3-11); BUN 25 mg/dL (7-18); Bilirubin, Total 0.6 mg/dL (0.2-1.0); CO2 30.0 mmol/L (21.0-32.0); Calcium 9.0 mg/dL (8.5-10.1); Chloride 100 mmol/L (98-107); Estimated GFR 88.33 (mL/min/1.73m2); Glucose 132 mg/dL (74-106); Magnesium 2.1 mg/dL (1.8-2.4); Potassium 4.3 mmol/L (3.5-5.1); Sodium 136 mmol/L (136-145); Total Protein 7.2 g/dL (6.4-8.2)
[2025-04-03] MEDS: Normal Saline 1,000 ML 1000 ML IV (11:52)
[2025-04-03 11:59] LABS: TSH (W/Ref FT4) 2.81 uIU/mL (0.36-3.74)
--- NOTE | 2025-04-03 12:18 | DI.VRAD_ITS ---
PROCEDURE INFORMATION: Exam: CTA Head Without And With Contrast, Arteriography Exam date and time: 04/03/2025 11:33 AM Age: 54 years old Clinical indication: Stroke-like symptoms; Other: Dysphasia, seizure; Left facial droop TECHNIQUE: Imaging protocol: Computed tomographic angiography of the head without and with contrast. Exam focused on the arteries. 3D rendering (Not supervised by radiologist): MIP and/or 3D reconstructed images were created by the technologist. Contrast material: OMNIAPQUE 350; Contrast volume: 75 ml; Contrast route: INTRAVENOUS (IV); Other technique: STROKE PROTOCOL was implemented. COMPARISON: No relevant prior studies available. FINDINGS: ANTERIOR CIRCULATION: Right internal carotid artery: Intracranial segment is patent with no significant stenosis or occlusion. No aneurysm. Right middle cerebral artery: No occlusion or significant stenosis. No aneurysm. Right anterior cerebral artery: No occlusion or significant stenosis. No aneurysm. Left internal carotid artery: Intracranial segment is patent with no significant stenosis. No aneurysm. Left middle cerebral artery: No occlusion or significant stenosis. No aneurysm. Left anterior cerebral artery: No occlusion or significant stenosis. No aneurysm. POSTERIOR CIRCULATION: Right vertebral artery: No occlusion or significant stenosis. No aneurysm. Left vertebral artery: No occlusion or significant stenosis. No aneurysm. Basilar artery: No occlusion or significant stenosis. No aneurysm. Right posterior cerebral artery: No occlusion or significant stenosis. No aneurysm. Left posterior cerebral artery: No occlusion or significant stenosis. No aneurysm. HEAD: Brain: There is a left temporal pole predominantly subcortical hypodensity suggestive of vasogenic edema. There is a hyperenhancing dural-based mass in the floor of the left middle cranial fossa measuring 1.6 x 1.8 x 1.5 cm causing mild mass effect on the inferior aspect of the left temporal pole. No midline shift. Cerebral ventricles: Normal. No ventriculomegaly. Pituitary gland and sella: There is a normal empty pituitary sella. Bones: Unremarkable. No acute fracture. Paranasal sinuses: Mucous retention cyst in the left maxillary sinus. Mastoid air cells: Visualized mastoids are normal. No mastoid effusion. Soft tissues: Unremarkable. IMPRESSION: 1. No large territorial infarct or intracranial bleed. 2. Left middle cranial fossa hyperenhancing lesion measuring 1.8 cm, likely dural-based and represent suspicious for a meningioma with surrounding vasogenic edema in the left temporal pole. Further evaluation by MRI with gadolinium is recommended. ASSESSMENT: ASPECTS ([place] Stroke Program Early CT Score) is 10. PROCEDURE INFORMATION: Exam: CTA Neck Without And With Contrast Exam date and time: 04/03/2025 11:33 AM Age: 54 years old Clinical indication: Stroke-like symptoms; Other: Dysphasia, seizure; Left facial droop TECHNIQUE: Imaging protocol: Computed tomographic angiography of the neck without and with contrast. Exam focused on the cervical segments of the vasculature. 3D rendering (Not supervised by radiologist): MIP and/or 3D reconstructed images were created by the technologist. Contrast material: OMNIAPQUE 350; Contrast volume: 75 ml; Contrast route: INTRAVENOUS (IV); COMPARISON: No relevant prior studies available. FINDINGS: Right common carotid artery: Calcified atheroma of the right common carotid artery but no significant stenosis. Right internal carotid artery: No stenosis of the extracranial segment. No dissection or occlusion. Right external carotid artery: No occlusion or stenosis of the origin. Left common carotid artery: No stenosis. No dissection or occlusion. Left internal carotid artery: No stenosis of the extracranial segment. No dissection or occlusion. Left external carotid artery: No occlusion or stenosis of the origin. Right vertebral artery: No stenosis. No dissection or occlusion. Left vertebral artery: No stenosis. No dissection or occlusion. Paranasal sinuses: Mild mucosal disease of the left maxillary sinus. Thyroid: Hypodense left thyroid nodule measuring 7 mm. Soft tissues: Normal. No significant soft tissue swelling. Bones/joints: The cervical spine demonstrates mild degenerative changes at multiple levels. IMPRESSION: No significant arterial stenosis. REFERENCES: NASCET CRITERIA. The degree of stenosis in the cervical segment of the internal carotid artery is based on NASCET criteria. Normal is no stenosis. Mild is less than 50% stenosis. Moderate is 50-69% stenosis. Severe is 70% to 99% stenosis. Total occlusion is no detectable patent lumen. Dictated and Authenticated by: Humberto Gibson MD. Orderin Maria R Ricardo MD
--- NOTE | 2025-04-03 12:19 | DI.VRAD_ITS ---
PROCEDURE INFORMATION: Exam: XR Chest Exam date and time: 04/03/2025 11:50 AM Age: 54 years old Clinical indication: Other: New onset seizure, left facial droop, dysphasia/ams TECHNIQUE: Imaging protocol: Radiologic exam of the chest. Views: 1 view. COMPARISON: CT BRAIN NECK CTA 04/03/2025 11:33 AM FINDINGS: Lungs: Unremarkable. No consolidation. Pleural spaces: Unremarkable. No pleural effusion. No pneumothorax. Heart/Mediastinum: Unremarkable. No cardiomegaly. Bones/joints: Mild curvature of the thoracic spine convex to the left. IMPRESSION: No acute cardiopulmonary process. Dictated and Authenticated by: Humberto Gibson MD. Orderin Maria R Ricardo MD
[2025-04-03 12:48] LABS: Glucose Negative (Negative)
[2025-04-03] MEDS: levETIRAcetam 1,000 MG in Normal Saline 100 ML 400 MG IVPB (12:55)
[2025-04-03] MEDS: Dexamethasone 4 MG/ML VIAL IVP (12:55)
[2025-04-03 12:56] LABS: Troponin I 5 ng/L (<or=76)
[2025-04-03 12:59] LABS: Cannabinoids THC Negative (Negative); METHADONE URINE SCREEN Negative (Negative)
[2025-04-03] MEDS: levETIRAcetam 500 MG in Normal Saline 100 ML 400 MG IVPB (13:43)
--- NOTE | 2025-04-03 13:50 | W.ED.GENAD ---
Discharge Plan Disposition Patient Disposition: Transfer-Acute Inpatient Care Specific Acute Inpt Facility: [facility] Condition: Critical Discharge Details Clinical Impression: Brain mass, New onset seizure Primary Care Provider: Mary Stanley ED Provider: Haleigh Heck Home Meds and New Rx's Prescriptions: No Action epinephrine 0.3 mg/0.3 mL auto-injector 0.3 mg IM ONCE Qty: 2 0RF Rx Instructions: as a single dose; may repeat once HPI General Date/Time Provider Initiated Documentation: 04/03/25 11:26. HPI Narrative: 54-year-old male with altered mental status since 1015 hours. Brief speech loss, left facial droop, drooling, and tonic-clonic activity for 5 minutes. Postictal state for 10-15 minutes. Similar episodes since August, lasting 1-2 minutes, with speech difficulty. History of paroxysmal atrial fibrillation, no medication. Related Data Home Medications ?Medication ?Instructions ?Recorded ?Confirmed epinephrine 0.3 mg/0.3 mL 0.3 mg (0.3 mL) IM ONCE #2 ea 02/05/22 04/03/25 injection, auto-injector Previous Rx's ?Medication ?Instructions ?Recorded epinephrine 0.3 mg/0.3 mL 0.3 mg (0.3 mL) IM ONCE #2 ea 02/05/22 injection, auto-injector Allergies Allergy/AdvReac Type Severity Reaction Status Date / Time tetracycline (Tetracycline) Allergy Intermediate RASH Verified 04/03/25 11:39 Bee sting Allergy Intermediate Skin Rash Uncoded 04/03/25 11:39 Skin Glue AdvReac Intermediate Skin Rash Uncoded 04/03/25 11:39 General Stated Complaint: Seizure LEOPOLDO: 3 Exam Narrative Exam Narrative: General Appearance: Alert and oriented. Vital signs: Within normal limits. HEENT: Pupils equal, round, reactive to light and accommodation. Extraocular muscles intact. Visual gonzales intact. Oropharynx patent. [facility] midline. Respiratory: Lungs clear to auscultation. Cardiovascular: Cardiac rate and rhythm regular. No carotid bruit. Back, Musculoskeletal: Negative [id number] and heel-lee tests. Extremities: Strength and sensation intact in all extremities. Skin: Warm and dry, no rash. Neurological: Answering questions appropriately. Other observations: None. Course Vital Signs Vital signs: Vital Signs Temperature 37.1 C 04/03/25 11:19 Pulse 69 08/03/25 11:19 Respiratory Rate 18 04/03/25 11:19 Blood Pressure 159/94 H 04/03/25 11:19 Pulse Oximetry 97 04/03/25 11:19 Temperature 37.1 C 04/03/25 11:19 Temperature Source Oral 04/03/25 11:19 Pulse 54 L 04/03/25 13:23 Pulse 54 L 04/03/25 13:23 Respiratory Rate 17 04/03/25 13:23 Respiratory Effort Normal, Non-Labored 04/03/25 11:31 Respiratory Depth Normal 04/03/25 11:31 Respiratory Pattern Normal 04/03/25 11:31 Blood Pressure 149/88 H 04/03/25 13:16 Blood Pressure Mean 107 04/03/25 13:16 Pulse Oximetry 95 04/03/25 13:23 Respiratory End-tidal CO2 36 04/03/25 12:30 Oxygen Delivery Method Room Air 04/03/25 11:19 Oxygen Flow Rate 0 04/03/25 11:19 Pain Level 0 04/03/25 11:19 Lab/Test Results Lab/Test Results: Laboratory Tests Range/Units 04/03/25 04/03/25 04/03/25 11:27 12:30 12:35 WBC (4.4-10.8) 10^3/uL 5.17 RBC (4.36-5.78) 10^6/uL 4.38 Hgb (13.5-17.5) g/dL 14.3 Hct (40.0-50.0) % 41.6 MCV (80-95) fL 95 MCH (27.0-33.0) pg 32.6 MCHC (32.0-36.0) % 34.4 RDW (11.8-14.1) % 12.4 Plt Count (130-400) 10^3/uL 147 MPV (8.0-11.0) fL 10.3 Immature Gran % % 0.6 Neutrophils % % 65.7 Lymphocytes % % 25.1 Monocytes % % 7.4 Eosinophils % % 0.8 Basophils % % 0.4 Nucleated RBC % (0.0-0.3) % 0.0 Absolute Neutrophils (1.2-6.7) 10^3/uL 3.40 Absolute Lymphocytes (1.2-3.4) 10^3/uL 1.30 Absolute Monocytes (0.1-0.8) 10^3/uL 0.38 Absolute Eosinophils (0.0-0.7) 10^3/uL 0.04 Absolute Basophils (0.0-0.2) 10^3/uL 0.02 Sodium (136-145) mmol/L 136 Potassium (3.5-5.1) mmol/L 4.3 Chloride (98-107) mmol/L 100 Carbon Dioxide (21.0-32.0) mmol/L 30.0 Anion Gap (3-11) mmol/L 6.0 BUN (7-18) mg/dL 25 H Creatinine (0.70-1.30) mg/dL 1.0 Est GFR (CKD-EPI 2020) (mL/min/1.73m2) 88.33 Glucose (74-106) mg/dL 132 H Calcium (8.5-10.1) mg/dL 9.0 Magnesium (1.8-2.4) mg/dL 2.1 Total Bilirubin (0.2-1.0) mg/dL 0.6 AST (15-37) U/L 19 ALT (16-63) U/L 28 Alkaline Phosphatase (46-116) U/L 55 Troponin I (<or=76) ng/L 5 Cancelled Total Protein (6.4-8.2) g/dL 7.2 Albumin (3.4-5.0) g/dL 3.8 TSH (0.36-3.74) uIU/mL 2.81 Urine Color (Yellow) Yellow Urine Clarity (Clear) Clear Urine pH (5-8) 6.5 Ur Specific [place] (1.005-1.025) 1.010 Urine Protein (Neg-Trace) mg/dL Negative Urine Ketones (Negative) mg/dL Negative Urine Blood (Negative) Negative Urine Nitrite (Negative) Negative Urine Bilirubin (Negative) Negative Urine Urobilinogen (Up to 0.2) mg/dL 0.2 Ur Leukocyte Esterase (Negative) Negative Urine Glucose (Negative) mg/dL Negative Urine Opiates Screen (Negative) Negative Urine Methadone Screen (Negative) Negative Ur Barbiturates Screen (Negative) Negative Ur Tricyclics Screen (Negative) Negative Ur Amphetamines Screen (Negative) Negative U Benzodiazepines Scrn (Negative) Negative Urine Cocaine Screen (Negative) Negative Ur THC Screen (Negative) Negative Ethyl Alcohol (<10) mg/dL < 3.0 Range/Units 04/03/25 14:30 WBC (4.4-10.8) 10^3/uL RBC (4.36-5.78) 10^6/uL Hgb (13.5-17.5) g/dL Hct (40.0-50.0) % MCV (80-95) fL MCH (27.0-33.0) pg MCHC (32.0-36.0) % RDW (11.8-14.1) % Plt Count (130-400) 10^3/uL MPV (8.0-11.0) fL Immature Gran % % Neutrophils % % Lymphocytes % % Monocytes % % Eosinophils % % Basophils % % Nucleated RBC % (0.0-0.3) % Absolute Neutrophils (1.2-6.7) 10^3/uL Absolute Lymphocytes (1.2-3.4) 10^3/uL Absolute Monocytes (0.1-0.8) 10^3/uL Absolute Eosinophils (0.0-0.7) 10^3/uL Absolute Basophils (0.0-0.2) 10^3/uL Sodium (136-145) mmol/L Potassium (3.5-5.1) mmol/L Chloride (98-107) mmol/L Carbon Dioxide (21.0-32.0) mmol/L Anion Gap (3-11) mmol/L BUN (7-18) mg/dL Creatinine (0.70-1.30) mg/dL Est GFR (CKD-EPI 2020) (mL/min/1.73m2) Glucose (74-106) mg/dL Calcium (8.5-10.1) mg/dL Magnesium (1.8-2.4) mg/dL Total Bilirubin (0.2-1.0) mg/dL AST (15-37) U/L ALT (16-63) U/L Alkaline Phosphatase (46-116) U/L Troponin I (<or=76) ng/L Cancelled Total Protein (6.4-8.2) g/dL Albumin (3.4-5.0) g/dL TSH (0.36-3.74) uIU/mL Urine Color (Yellow) Urine Clarity (Clear) Urine pH (5-8) Ur Specific [place] (1.005-1.025) Urine Protein (Neg-Trace) mg/dL Urine Ketones (Negative) mg/dL Urine Blood (Negative) Urine Nitrite (Negative) Urine Bilirubin (Negative) Urine Urobilinogen (Up to 0.2) mg/dL Ur Leukocyte Esterase (Negative) Urine Glucose (Negative) mg/dL Urine Opiates Screen (Negative) Urine Methadone Screen (Negative) Ur Barbiturates Screen (Negative) Ur Tricyclics Screen (Negative) Ur Amphetamines Screen (Negative) U Benzodiazepines Scrn (Negative) Urine Cocaine Screen (Negative) Ur THC Screen (Negative) Ethyl Alcohol (<10) mg/dL Medical Decision Making Imaging CT scans show no concern for meningioma given the location and new onset of seizure. There is some vasogenic edema with mild shift. Initial Assessment: 54-year-old male with altered mental status, left facial droop, drooling, tonic-clonic activity (~5 min), postictal state (~10-15 min). History of paroxysmal atrial fibrillation, not on medication. Differential Diagnosis: - TIA: Transient neurological symptoms. No evidence on CT. - Stroke: Neurological symptoms. No evidence on CT. - Mass: New onset seizure. No meningioma on CT. - Non-epileptic seizure: Seizure activity. Treated with Keppra and Decadron. ED Course: - Neurologist consulted for teleneuro. - CT reviewed: No meningioma, vasogenic edema with mild shift. - Administered: 1 g Keppra, 4 mg Decadron. - Neurosurgery paged. - Seizure pads applied. - Neurosurgery consulted Dr. Yoo: Additional 500 mg Keppra administered. - Transfer recommended to neurosurgery facility. - No additional seizures noted Final Assessment: Neurological symptoms with seizure activity, treated with Keppra and Decadron. CT showed vasogenic edema with mild shift. Clinical Impression: - TIA - Stroke - Mass - Non-epileptic seizure Disposition: - Transfer to neurosurgery facility. 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 Hearing loss TM rupture; unchanged. Idiopathic scoliosis Rotoscoliosis; kyphoscoliosis Mucoid cyst of joint Left thumb; deflated without intervention. PSVT (paroxysmal supraventricular tachycardia) (12/24/17) had event monitor; has very infrequent episodes, no treatment. Surgical History History of open reduction and internal fixation (ORIF) procedure (12/12/14) 12/12/14 [facility]; DR. HARVEY RIGHT ANKLE ORIF 10/11/15 [facility]; DR. HARVEY REMOVAL OF HARDWARE (RIGHT) History of orthopedic surgery (10/11/15) History of vasectomy (08/01/16) S/P laparoscopic hernia repair (~11/2020) BIlateral inguinal hernia Family History (Updated 08/06/24 @ 14:45 by Mary Stanley MD) Mother Diabetes Essential hypertension Hyperlipidemia Skin cancer Dementia Father Essential hypertension Hyperlipidemia Prostate cancer Maternal Grandfather Hyperlipidemia Paternal Grandfather Essential hypertension Malignant melanoma Maternal Grandmother Essential hypertension Paternal Grandmother Essential hypertension Non-Hodgkin lymphoma Hyperlipidemia Daughter No problems noted. Sister No problems noted. Social History (Updated 07/30/23 @ 12:51 by Roxana Goodwin) Smoking/Tobacco Use Status: Former Tobacco Use tobacco type: cigarettes and smokeless tobacco Quit Date: 09/01/89 Smoking risk assessment performed?: Yes Alcohol Intake: current Alcohol Intake frequency: a few times a month Alcohol type: beer and hard liquor Drug use: Rarely Substance use type: marijuana Adopted: No Caregiver/Support person: No Foster care: No Household members: spouse Housing: house Number of Children: 1 Communication Needs: None Do you need help understanding health information?: Never current occupation: self employed in trading futures Pets and animals: Yes Pets and animals: cat(s) and dog(s) Sexually active: Yes Do you think of yourself as: straight/heterosexual Current gender identity: male What is your relationship status?: How often do you talk on the phone with friends or family?: once per week How often do you get together with friends or relatives?: once per week Do you belong to any clubs or organized social groups?: yes Panel score (0-1 are the most socially isolated patients): 2 What type of physical activity do you participate in: bicycling, other Details: Ski; hiking and running Duration: > 90 minutes/day Frequency: 5-6 times per week Consuelo/Baptist: No preference Special consuelo needs: No Agree to transfusion: Yes Seatbelt use: always Helmet use: Yes Helmet use: always Drive intox or ride w/intox commercial driver: No Working smoke detector in home: Yes Carbon monox detector in home: Yes Firearms in home: Yes Firearms unloaded and locked: Yes Do you feel safe at home: Yes Do you feel safe in your relationship?: Yes Victim of physical abuse: No Victim of emotional abuse: No Victim of sexual abuse: No
== END 2025-04-03 14:08 | disposition short-term general hospital (02) ==
PROVIDERS: Emergency Provider Physician Assistant; PCP Family Medicine
DX: R94.02 Abnormal brain scan (principal); R56.9 Unspecified convulsions; R41.82 Altered mental status, unspecified; I50.9 Heart failure, unspecified
CPT/HCPCS: 70496; 70498; 80053; 80307; 93005; 96361; 96365; 96366; 96375; 99285; 71045; 80320; 81003; 83735; 84443; 84484; 85025; 93010; J1100; J1953; J3490

== ENCOUNTER 2025-04-23 13:03 | Emergency (ER) | payer BC, SELFPAY ==
[2025-04-23] VITALS (9 sets, daily range): BP systolic 123–146; BP diastolic 81–94; PULSE 51–66; RESP 18; TEMP 36.5–36.6; O2SAT 96–98
--- NOTE | 2025-04-23 14:09 | DI.CT_ITS ---
Exam(s) CT HEAD WO/W EXAM: CT HEAD WO/W CLINICAL HISTORY: Hx Craniotomy post-op left ear drainage. TECHNIQUE: Imaging Protocol: Both noninfused and contrast infused CT scans of the brain were performed. IV Contrast Dose =100 cc Axial computed tomography images with coronal and sagittal reformatted images were created and reviewed COMPARISON: CT CT BRAIN NECK CTA from 04/03/2025 FINDINGS: There has been interval left temporal craniotomy. There is prominent scalp swelling over the recent left temporal craniotomy site. The previously present enhancing brain lesion in the left middle cranial fossa is no longer seen. There is some intracranial air in the left middle cranial fossa at the site of prior surgery and there is some vasogenic edema in and above the left middle cranial fossa within the left temporal lobe. There is no evidence of intracranial hemorrhage. Some air is also seen just medial to the inner plate of the craniotomy, this related to the recent surgery. There are no ring enhancing lesions in this region nor elsewhere in the brain. No evidence of abscess. No shift of midline structures. Ventricular size is normal and there is no blood within the ventricular system nor within the basal cisterns. There is no fluid within the middle ear cavities nor within the aditus ad antrum nor within the mastoid air cells. The external auditory canals are clear without evidence of fluid nor cerumen. IMPRESSION: Postsurgical changes seen in the left middle cranial fossa. No evidence of obvious abscess. No fluid in the middle ear cavity nor within the mastoid air cells nor within the external auditory canal.. Preliminary virtual Radiology report was reviewed. Her called by myself to ER physician 04/23/2025 at 5:20 pm RADIATION DOSE DELIVERED: 1,868.91mGy.cm Total DLP DATA REPOSITORY: All CT scans at this facility are submitted to the National Radiology Data Registry (NRDR) Dose Index Registry (DIR) with the [employer] (ACR). RADIATION OPTIMIZATION: All CT scans at this facility use at least one of these dose optimization techniques: automated exposure control; mA and/or kV adjustment per patient size (includes targeted exams where dose is matched to clinical indication); or iterative reconstruction.
--- NOTE | 2025-04-23 14:11 | ED.GENADUL_ITS ---
Discharge Plan Discharge Details Chief Complaint: Cellulitis Primary Care Provider: Mary Stanley ED Provider: Erica Hernandez Home Meds and New Rx's Prescriptions: No Action epinephrine 0.3 mg/0.3 mL auto-injector 0.3 mg IM ONCE Qty: 2 0RF Rx Instructions: as a single dose; may repeat once trazodone 50 mg tablet 50 mg PO QHS PRN Rx Instructions: As needed for sleep (after melatonin) pantoprazole 40 mg tablet,delayed release (DR/EC) 40 mg PO DAILY levetiracetam [Keppra] 1,000 mg tablet 1,000 mg PO BID melatonin 3 mg capsule 6 mg PO HS PRN celecoxib 200 mg capsule 200 mg PO BID Patient Comments: TAKE 1 CAPSULE BY MOUTH TWICE DAILY diazepam 5 mg tablet 5 mg PO Q6H Patient Comments: TAKE 1 TABLET BY MOUTH EVERY 6 HOURS NEEDED FOR MUSCLE SPASMS oxycodone 5 mg tablet 5 mg PO Q4H Patient Comments: TAKE 1 TABLET BY MOUTH EVERY 4 HOURS NEEDED FOR PAIN HPI General Mode of arrival: ambulatory . Date/Time Provider Initiated Documentation: 04/23/25 13:07 . Limitations to Documentation: no limitations . Information obtained by: patient, RN notes reviewed and old records reviewed . HPI Narrative: 5 [place] [facility] [place]. Over the last 2 days family and patient report that he has had some increased redness surrounding his left ear with some purulent drainage noted to his left earlobe. There was patient is complaining of some left ear pain and is going to run out of his oxycodone. Denies any fever or chills. reports that it has gotten slightly redder over the last couple of days. Related Data Home Medications ?Medication ?Instructions ?Recorded ?Confirmed epinephrine 0.3 mg/0.3 mL 0.3 mg (0.3 mL) IM ONCE #2 e a 02/05/22 04/23/25 injection, auto-injector levetiracetam 1,000 mg tablet 1,000 mg PO BID 04/06/25 04/23/25 (Keppra) melatonin 3 mg capsule 6 mg PO HS PRN 04/06/2504/02 pantoprazole 40 mg tablet,delayed 40 mg PO DAILY 04/0604/23/25 release trazodone 50 mg tablet 50 mg PO QHS PRN 04/06/25 celecoxib 200 mg capsule 200 mg PO BID 04/23/2504/23 diazepam 5 mg tablet 5 mg PO Q6H 04/23/25 5 oxycodone 5 mg tablet 5 mg PO Q4H 04/23/25 5 Previous Rx's ?Medication ?Instructions ?Recorded epinephrine 0.3 mg/0.3 mL 0.3 mg (0.3 mL) IM ONCE #2 e a 02/05/22 injection, auto-injector Allergies Allergy/AdvReac Type Severity Reaction Status Date / Time tetracycline (Tetracycline) Allergy Intermediate RASH Verified 04/23/25 13:20 Bee sting Allergy Intermediate Skin Rash Uncoded 04/23/25 13:20 Skin Glue AdvReac Intermediate Skin Rash Uncoded 04/23/25 13:20 General Stated Complaint: Cellulitis LEOPOLDO: 3 Review of Systems All systems reviewed & are unremarkable except as noted in HPI and below Constitutional Constitutional: Reports as per HPI, Denies chills, Denies fever(s) and Reports headache(s) (Improved since surgery) ENT Ears, Nose, Mouth, and Throat: Reports headache(s) (Improved since surgery) Integumentary/Breasts Skin/Breast: Reports as per HPI, Reports pruritus (Left ear), Reports skin pain, Reports skin swelling and Reports wounds Neurologic Neurologic: Reports as per HPI and Reports headache(s) (Improved since surgery) Exam Const General: cooperative, well developed and well groomed Nutritional Appearance: average body habitus Orientation: alert, awake and oriented x3 Limitations: physical limitations (Slurred speech, has been taking Oxycodone) [facility] Head: laceration (Healing surgical scar, Simple interrupted sutures noted, wound well approxi) left temporal not actively bleeding and raccoon eyes (small left inferior periorbital ecchymosis) Head images: 2 1. Healing surgical incision with simple interrupted sutures noted, mild amount of surrounding erythema 2. Does have erythema, swelling noted to his ear, post auricle erythema and maceration, he does have some yellow discharge noted from his left earlobe, internal ear canal and tympanic membrane appear within normal limits. Ear is swollen. 3. Healing contusion, mild ecchymosis Ears: TM normal on the left, EAC's normal and external ear abnormal auricular tenderness, pain with movement of external ear and other (Left ear swelling, erythema, drainage) General nose exam: external nose normal Face and sinus: ecchymosis on the left periorbital Mouth: oral mucosae normal Neuro General: patient alert and patient awake Cranial Nerves: PERRL and EOM intact bilaterally Speech: abnormal speech slurred Gait: normal gait Motor: muscle tone normal throughout Sensory Exam: no sensory deficits noted Course Vital Signs Vital signs: Vital Signs Temperature 36.5 C 04/23/25 13:14 Pulse 18 L 04/23/25 13:14 Respiratory Rate 66 H 04/23/25 13:14 Blood Pressure 123/81 04/23/25 13:14 Pulse Oximetry 97 04/23/25 13:14 Temperature 36.5 C 04/23/25 13:14 Temperature Source Tympanic 04/23/25 13:14 Pulse 18 L 04/23/25 13:14 Respiratory Rate 66 H 04/23/25 13:14 Blood Pressure 123/81 04/23/25 13:14 Pulse Oximetry 97 04/23/25 13:14 Oxygen Delivery Method Room Air 04/23/25 13:14 Oxygen Flow Rate 0 04/23/25 13:14 Pain Level 7 04/23/25 13:14 Lab/Test Results Lab/Test Results: 04/23/25 14:09 Blood Blood Culture - Pending 04/23/25 14:09 Blood Blood Culture - Pending Medical Decision Making 5 [place] [facility] [place]. Over the last 2 days family and patient report that he has had some increased redness surrounding his left ear with some purulent drainage noted to his left earlobe. There was patient is complaining of some left ear pain and is going to run out of his oxycodone. Denies any fever or chills. reports that it has gotten slightly redder over the last couple of days. Workup ordered including CBC CMP, blood cultures x 2, CT head with contrast to rule out abscess or intracranial infection, 0.5 mg of Dilaudid and 4 mg of Zofran. 1gm Ceftriaxone IVPB ordered. Patient is afebrile upon arrival, I differential diagnosis includes not limited to superficial cellulitis of the left ear and left surgical area, cranial abscess, left otitis externa, Care is to be handed off to oncoming provider Larry Lin MD pending CT head with contrast. Discussed patient case details with him he verbalized understanding. Patient is hemodynamically stable at this time. Do recommend possible neurosurgical consultation and discharged with refill of oxycodone and antibiotics if necessary. This text was generated using [employer] system, please disregard any oddities of phrase or misspellings. Medical Records Medical records reviewed: Yes I reviewed the patient's medical records. Lab Data Lab results reviewed: Yes I reviewed the patient's lab results. Labs: 04/23/25 14:30 Blood Blood Culture - Pending 04/23/25 14:30 Blood Blood Culture - Pending Laboratory Tests Range/Units 04/23/25 14:30 WBC (4.4-10.8) 10^3/uL 5.77 RBC (4.36-5.78) 10^6/uL 4.55 Hgb (13.5-17.5) g/dL 14.7 Hct (40.0-50.0) % 43.7 MCV (80-95) fL 96 H MCH (27.0-33.0) pg 32.3 MCHC (32.0-36.0) % 33.6 RDW (11.8-14.1) % 12.7 Plt Count (130-400) 10^3/uL 149 MPV (8.0-11.0) fL 10.5 Immature Gran % % 1.2 Neutrophils % % 63.1 Lymphocytes % % 23.7 Monocytes % % 8.8 Eosinophils % % 2.9 Basophils % % 0.3 Nucleated RBC % (0.0-0.3) % 0.0 Absolute Neutrophils (1.2-6.7) 10^3/uL 3.63 Absolute Lymphocytes (1.2-3.4) 10^3/uL 1.37 Absolute Monocytes (0.1-0.8) 10^3/uL 0.51 Absolute Eosinophils (0.0-0.7) 10^3/uL 0.17 Absolute Basophils (0.0-0.2) 10^3/uL 0.02 Sodium (136-145) mmol/L 138 Potassium (3.5-5.1) mmol/L 4.1 Chloride (98-107) mmol/L 103 Carbon Dioxide (21.0-32.0) mmol/L 28.5 Anion Gap (3-11) mmol/L 6.5 BUN (7-18) mg/dL 14 Creatinine (0.70-1.30) mg/dL 1.1 Est GFR (CKD-EPI 2020) (mL/min/1.73m2) 78.79 Glucose (74-106) mg/dL 93 Calcium (8.5-10.1) mg/dL 8.5 Magnesium (1.8-2.4) mg/dL 2.0 Total Bilirubin (0.2-1.0) mg/dL 0.3 AST (15-37) U/L 24 ALT (16-63) U/L 38 Alkaline Phosphatase (46-116) U/L 62 Total Protein (6.4-8.2) g/dL 7.1 Albumin (3.4-5.0) g/dL 3.0 L PFSH All Active Problems New onset seizure (Acute) Brain mass (Acute) Sebaceous cyst (Acute) right lateral neck RBBB (Acute) BPH (benign prostatic hyperplasia) (Chronic) not on treatment Elevated BP without diagnosis of hypertension (Acute) Ventricular tachyarrhythmia (Chronic 06/2023) exercise, intermittent, [place] [facility] [place] Medical History Mucoid cyst of joint Left thumb; deflated without intervention. AC separation, type 3 (~2018) right Family history of prostate cancer in father diagnosed in late 70s. Hearing loss TM rupture; unchanged. Idiopathic scoliosis Rotoscoliosis; kyphoscoliosis PSVT (paroxysmal supraventricular tachycardia) (12/24/17) had event monitor; has very infrequent episodes, no treatment. Surgical History S/P laparoscopic hernia repair (~11/2020) BIlateral inguinal hernia History of open reduction and internal fixation (ORIF) procedure (12/12/14) 12/12/14 [facility]; DR. HARVEY RIGHT ANKLE ORIF 10/11/15 [facility]; DR. HARVEY REMOVAL OF HARDWARE (RIGHT) History of orthopedic surgery (10/11/15) History of vasectomy (08/01/16) Family History Mother Diabetes Essential hypertension Hyperlipidemia Skin cancer Dementia Father Essential hypertension Hyperlipidemia Prostate cancer Maternal Grandfather Hyperlipidemia Paternal Grandfather Essential hypertension Malignant melanoma Maternal Grandmother Essential hypertension Paternal Grandmother Essential hypertension Non-Hodgkin lymphoma Hyperlipidemia Daughter No problems noted. Sister No problems noted. Social History Smoking/Tobacco Use Status: Former Tobacco Use tobacco type: cigarettes and smokeless tobacco Quit Date: 09/01/89 Smoking risk assessment performed?: Yes Alcohol Intake: current Alcohol Intake frequency: a few times a month Alcohol type: beer and hard liquor Drug use: Rarely Substance use type: marijuana Adopted: No Caregiver/Support person: No Foster care: No Household members: spouse Housing: house Number of Children: 1 Communication Needs: None Do you need help understanding health information?: Never current occupation: self employed in trading [employer] Pets and animals: Yes Pets and animals: cat(s) and dog(s) Sexually active: Yes Do you think of yourself as: straight/heterosexual Current gender identity: male What is your relationship status?: How often do you talk on the phone with friends or family?: once per week How often do you get together with friends or relatives?: once per week Do you belong to any clubs or organized social groups?: yes Panel score (0-1 are the most socially isolated patients): 2 What type of physical activity do you participate in: bicycling, other Details: Ski; hiking and running Duration: > 90 minutes/day Frequency: 5-6 times per week Consuelo/Voodoo: No preference Special consuelo needs: No Agree to transfusion: Yes Seatbelt use: always Helmet use: Yes Helmet use: always Drive intox or ride w/intox cement truck driver: No Working smoke detector in home: Yes Carbon monox detector in home: Yes Firearms in home: Yes Firearms unloaded and locked: Yes Do you feel safe at home: Yes Do you feel safe in your relationship?: Yes Victim of physical abuse: No Victim of emotional abuse: No Victim of sexual abuse: No
[2025-04-23] MEDS: cefTRIAXone 1 GM/50 ML BAG IVPB (14:55)
[2025-04-23] MEDS: Ondansetron 4 MG/2 ML VIAL IVP (14:57)
[2025-04-23 15:02] LABS: Abs Immature Grans 0.07 10^3/uL (0.0-0.06); HCT 43.7 % (40.0-50.0); HGB 14.7 g/dL (13.5-17.5); Immature Grans % 1.2 %; MCH 32.3 pg (27.0-33.0); MCHC 33.6 % (32.0-36.0); MCV 96 fL (80-95); MPV 10.5 fL (8.0-11.0); Platelet Count 149 10^3/uL (130-400); RBC 4.55 10^6/uL (4.36-5.78); RDW 12.7 % (11.8-14.1); RDW-SD 44.7 fL; WBC 5.77 10^3/uL (4.4-10.8)
[2025-04-23 15:16] LABS: ALT 38 U/L (16-63); AST 24 U/L (15-37); Albumin 3.0 g/dL (3.4-5.0); Alkaline Phosphatase 62 U/L (46-116); Anion Gap 6.5 mmol/L (3-11); BUN 14 mg/dL (7-18); Bilirubin, Total 0.3 mg/dL (0.2-1.0); CO2 28.5 mmol/L (21.0-32.0); Calcium 8.5 mg/dL (8.5-10.1); Chloride 103 mmol/L (98-107); Estimated GFR 78.79 (mL/min/1.73m2); Glucose 93 mg/dL (74-106); Magnesium 2.0 mg/dL (1.8-2.4); Potassium 4.1 mmol/L (3.5-5.1); Sodium 138 mmol/L (136-145); Total Protein 7.1 g/dL (6.4-8.2)
[2025-04-23] MEDS: Omnipaque 350 MG/ML 100 ML BTL IJ (15:27)
[2025-04-23] MEDS: Normal Saline - Diluent 50 ML VIAL IJ (15:28)
[2025-04-23] MEDS: oxyCODONE 5 MG TAB PO (16:03)
[2025-04-23] MEDS: Acetaminophen 500 MG TAB 1000 MG PO (17:06)
--- NOTE | 2025-04-23 17:09 | DI.VRAD_ITS ---
Addendum created by Neda Melo MD on 04/23/2025 5:13:36 PM EDT: I discussed case findings with Dr. Larry Lin 04/23/2025 5:12 PM EDT. Initial report created on 04/23/2025 5:09:04 PM EDT: PROCEDURE INFORMATION: Exam: CT Head With Contrast Exam date and time: 04/23/2025 3:29 PM Age: 54 years old Clinical indication: Other: 5 days post op craniotomy for left sided brain mass, now with purulent drainage from left ear; Prior surgery; Surgery date: 3-7 days post-operative TECHNIQUE: Imaging protocol: Computed tomography of the head with intravenous contrast. Radiation optimization: All CT scans at this facility use at least one of these dose optimization techniques: automated exposure control; mA and/or kV adjustment per patient size (includes targeted exams where dose is matched to clinical indication); or iterative reconstruction. Contrast material: OMNIPAQUE 350; Contrast volume: 100 ml; Contrast route: INTRAVENOUS (IV); COMPARISON: CT BRAIN NECK CTA 04/03/2025 11:33 AM FINDINGS: Brain: There are small amounts of dependent intracranial air in the left middle cranial fossa medially series 4, images 43 -45. This appears to lie in the previous tumor bed. There is some mild underlying vasogenic edema in the left temporal lobe, slightly improved compared to preoperative exam. Left-sided craniotomy change noted. There is no evidence for acute intracranial hemorrhage. Following contrast administration there is no abnormal enhancement. Cerebral ventricles: Unremarkable. No ventriculomegaly. Bones/joints: See Brain finding. Paranasal sinuses: Left maxillary sinus retention cyst is stable. Mastoid air cells: There is some very mild mucoperiosteal thickening in the left anterior mastoid air cells without significant opacification or air-fluid formation. Soft tissues: Unremarkable. Other findings: There is no definite fluid attenuation at the level of the left middle ear. IMPRESSION: Postsurgical changes. There is residual dependent air in the left middle cranial fossa with adjacent edema change. No convincing abscess identified. Dictated and Authenticated by: Neda Melo MD. Orderin Mary Maldonado MD
[2025-04-23] MEDS: Cetirizine 10 MG TAB PO (17:12)
--- NOTE | 2025-04-23 17:14 | W.EDPROG ---
Date of service: 04/23/25 Time of Service: 17:29 Medical Decision Making MDM/Narrative: 1710 Patient care assumed pending CT results, and disposition. None I reassessed patient he appears overall well, in no acute distress. Surgical site is nontender to palpation with clean wound margins, no surrounding erythema or edema. No noted drainage from the surgical site. Patient however does have some erythema with some slight skin sloughing and serous fluid discharge from the inferior aspect of the left earlobe. No mastoid tenderness to palpation. Patient denies any associated pain, but does complain that the area of the ear is itchy. Given lack of pain, fever or tenderness on examination as well as the serous discharge, I am more suspicious for a dermatitis, potentially related to any adhesives that may have been applied to the ear during the operation, or the patient notes that the couch he has been sleeping on following his operation is also cohabitating with a dog, which could have caused an exposure to something such as poison marilou or other irritants. Regardless CT imaging reviewed and discussed with Dr. Melo, virtual radiology, who notes residual dependent air in the left medial cranial fossa with adjacent post surgical edema. Given that patient is clinically improving is afebrile has no leukocytosis and no significant pain that is worsening follows operation I have a very low suspicion for an intraoperative infection. Again I suspect his ear complaint is secondary to topical irritant. Will treat with Zyrtec. And have patient follow-up with his neurosurgeon. Radiology: Exam: CT Head With Contrast Exam date and time: 04/23/2025 3:29 PM Age: 54 years old Clinical indication: Other: 5 days post op craniotomy for left sided brain mass, now with purulent drainage from left ear; Prior surgery; Surgery date: 3-7 days post-operative TECHNIQUE: Imaging protocol: Computed tomography of the head with intravenous contrast. Radiation optimization: All CT scans at this facility use at least one of these dose optimization techniques: automated exposure control; mA and/or kV adjustment per patient size (includes targeted exams where dose is matched to clinical indication); or iterative reconstruction. Contrast material: OMNIPAQUE 350; Contrast volume: 100 ml; Contrast route: INTRAVENOUS (IV); COMPARISON: CT BRAIN NECK CTA 04/03/2025 11:33 AM FINDINGS: Brain: There are small amounts of dependent intracranial air in the left middle cranial fossa medially series 4, images 43 -45. This appears to lie in the previous tumor bed. There is some mild underlying vasogenic edema in the left temporal lobe, slightly improved compared to preoperative exam. Leftsided craniotomy change noted. There is no evidence for acute intracranial hemorrhage. Following contrast administration there is no abnormal enhancement. Cerebral ventricles: Unremarkable. No ventriculomegaly. Bones/joints: See Brain finding. Paranasal sinuses: Left maxillary sinus retention cyst is stable. Mastoid air cells: There is some very mild mucoperiosteal thickening in the left anterior mastoid air cells without significant opacification or air-fluid formation. Soft tissues: Unremarkable. Other findings: There is no definite fluid attenuation at the level of the left middle ear. LAUREANO MANCERA Preliminary Radiology Report EDUCATION ASSISTANT (QA) DISCREPANCY? If there is a discrepancy between the preliminary and final interpretation, please notify [email or web address] via [email or web address]. If you do not have access to our QA portal, call our QA team at [phone] CONFIDENTIALITY STATEMENT This report is intended only for the use of the referring physician, and only in accordance with law, If you received this in error, call [phone] Page 2 of 2 IMPRESSION: Postsurgical changes. There is residual dependent air in the left middle cranial fossa with adjacent edema change. No convincing abscess identified. Thank you for allowing us to participate in the care of your patient. Dictated and Authenticated by: Neda Melo MD Quality:SDOH Health Related Social Needs: Health related social needs material hardship Health related social needs details N/A Discharge Plan Disposition Patient Disposition: Home Discharge Details Clinical Impression: Contact dermatitis Primary Care Provider: Mray Stanley ED Provider: Larry Lin Home Meds and New Rx's Prescriptions: New oxycodone 5 mg capsule 5 mg PO Q6H PRNQty: 12 0RF desloratadine 5 mg tablet,disintegrating 5 mg PO DAILY Qty: 30 0RF Continued epinephrine 0.3 mg/0.3 mL auto-injector 0.3 mg IM ONCE Qty: 2 0RF Rx Instructions: as a single dose; may repeat once trazodone 50 mg tablet 50 mg PO QHS PRN Rx Instructions: As needed for sleep (after melatonin) pantoprazole 40 mg tablet,delayed release (DR/EC) 40 mg PO DAILY levetiracetam [Keppra] 1,000 mg tablet 1,000 mg PO BID melatonin 3 mg capsule 6 mg PO HS PRN celecoxib 200 mg capsule 200 mg PO BID Patient Comments: TAKE 1 CAPSULE BY MOUTH TWICE DAILY diazepam 5 mg tablet 5 mg PO Q6H Patient Comments: TAKE 1 TABLET BY MOUTH EVERY 6 HOURS NEEDED FOR MUSCLE SPASMS oxycodone 5 mg tablet 5 mg PO Q4H Qty: 12 0RF Patient Comments: TAKE 1 TABLET BY MOUTH EVERY 4 HOURS NEEDED FOR PAIN Discharge Instructions Instructions: Contact dermatitis, Skin Rash ED Additional Instructions: Please follow-up with your neurosurgeon and primary care provider regarding your visit to the emergency department today. Be sure to discuss results of all test performed here today to include radiology, and laboratory testing as well as results for any pending cultures. Should your symptoms worsen, or if you develop new concerning symptoms, please return immediately emergency department for further evaluation.
== END 2025-04-23 17:45 | disposition home or self-care (01) ==
PROVIDERS: Registered Nurse Emergency; Emergency Provider General Practice; PCP Family Medicine
DX: L25.9 Unspecified contact dermatitis, unspecified cause (principal); Z98.890 Other specified postprocedural states; H92.02 Otalgia, left ear; Z59.87 Material hardship due to limited financial resources, not elsewhere classified
CPT/HCPCS: 00123; 80053; 87040; 96365; 96375; 99284; 70470; 83735; 85025; J0696; J2405; J3490

== ENCOUNTER 2025-05-16 07:57 | Outpatient (CLI) | payer BC, SELFPAY ==
[2025-05-16 18:30] LABS: PSA, Screening 0.5 ng/mL (<=3.5)
== END 2025-05-16 07:58 | disposition home or self-care (01) ==
LOC: LBO 08:02
PROVIDERS: PCP Family Medicine; Visit Provider Family Medicine
DX: Z12.5 Encounter for screening for malignant neoplasm of prostate (principal); N40.1 Benign prostatic hyperplasia with lower urinary tract symptoms; R35.1 Nocturia
CPT/HCPCS: 36415; 84153